=== PATIENT | female | born 1995 | race Caucasian/White ===

== ENCOUNTER 2021-12-17 07:43 | Inpatient (IN) ==
[2021-12-17] MEDS ORDERED: OXYTOCIN 30 UNITS/500 ML BAG IV PRN ×3 (08:11→18:27)
--- NOTE | 2021-12-17 08:34 | History & Physical Report ---
Date of Service December 17, 2021 Assessment & Plan (1) 40 weeks gestation of : Plan: postdates induction. pitocin induction then epidural when in a good pattern. once comfortable then plan arom. fetus category one. anticipate . gbs negative. Admission and Anticipated Discharge Date Admission Date: December 17, 2021 History of Present Illness Chief Complaint: presents for postdates induction Primary Care Provider: Roc Christine MD Patient is a 26yowf with iup at40 03/23 who presents for postdates induction. has been essentially uncomplicated. Patient had bernal bulb placed last night and had very painful cramping. Notes good fm. some spotting. no lof. Occasional contraction. Notes the bulb fell out at about 4am. Recently had covid. and Delivery Plans COVID + PCR on 11/25 and s/s started 11/24 Newly diagnosed with Asthma (03/2021) -Follows Dr Boswell. PRN Ventolin use atrial appendage (normal variant per [facility]) * we saw pericardial effusion on heart views to complete anatomy in early August--> MFM consult * [facility] MFM consult 09/23/21 saw-->4-5mm effusion and aneurysm vs diverticulum off ventricle--> sent to [facility] * [facility] 09/30/21 saw --> normal anatomy and function. atrial appendage noted. no pericardial effusion--> ok for routine delivery. baby needs echo 2-3m. - [facility] reviewed the above [facility] recs, agreed, per [place] [facility] does not need NICU at delivery, ok to deliver at [facility]. s/p covid vaccine and booster. Tdap given 09/23/21 GBS Negative- 11/13/21 IOL 12/17/21 OB Labs: Blood Type O Positive 05/11/21 Antibody Screen NEGATIVE 05/11/21 Hemoglobin 11.8 g/dL (12.0-16.0) L 09/23/21 Hematocrit 35.6 % (37-47) L 09/23/21 Mean Corpuscular Volume 88.9 fL (80-100) 05/11/21 Platelet Count 200 K/uL (130-400) 05/11/21 Rubella IgG Antibody Immune (Immune) 05/11/21 Rapid Plasma Reagin Nonreactive (Nonreactive) 05/11/21 Hepatitis B Surface Antigen Neg (Neg) 05/11/21 HIV (1&2) Ab and P24 Ag, 4th Gener Neg (Neg) 05/11/21 Glucose 1 Hour 50 gm Load 115 mg/dl (70-130) 09/23/21 Maternal Serum Alpha Fetoprotein 32.2 ng/mL 07/01/21 OB Optional Labs: Chlamydia trachomatis RNA NOT DETECTED (NOT DETECTED) 05/11/21 Neisseria gonorrhoeae RNA NOT DETECTED (NOT DETECTED) 05/11/21 Alpha Fetoprotein Triple Screen SEE NOTE 07/01/21 Labs Reviewed: low risk panorama--akh cf/sma neg--akh afp--neg--akh GBS negative--mln Allergies Allergy/AdvReac Type Severity Reaction Status Date / Time No Known Allergies Allergy Verified 12/16/21 19:32 Home Medications Medication Instructions Recorded Confirmed Type albuterol sulfate 90 mcg/actuation See Rx Instructions INHALATION 12/30/20 12/17/21 Rx aerosol inhaler (Ventolin HFA) .COMPLEX PRN #8.5 g prenat.vits,kristi,efa-zuev-efswm 1 tab PO DAILY 04/22/21 12/17/21 History breast pump #1 ea 11/13/21 12/16/21 Rx Patient History Medical History Asthma albuterol inhaler as needed Surgical History Hx of wisdom tooth extraction Family History Grandmother (Maternal) Breast cancer Grandfather (Paternal) Colorectal cancer Colon cancer Father Dyslipidemia Denies family history of Ovarian cancer Prostate cancer Diabetes Myocardial infarction Lung cancer Lung disease Hypertension Uterine cancer Social History Smoking Status: Never smoker Second Hand Exposure: No; Hx Alcohol Use: No Hx Substance Use: No Preferred Language: Scottish Visual Impairment: No Limitations Hearing Ability: Normal marital status: marital status details: Keegan Frazier (28) [phone] Current Living Situation: Spouse Current Living Situation Comment: Lives with spouse, planning for a dog current occupational status: employed current occupation: chief engineering division How many Children do You have: 0 Feels Safe at Home: Yes Childhood Exposure to Second-Hand Smoke: No caffeine: Yes Dental Care, Regularly: Yes Physical Activity Frequency: 5-6 Times per Week Seatbelt Use: always Sunscreen Use: Yes OB History g1--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
[2021-12-17 08:41] LABS: Hematocrit (blood only) 35.9 % (37-47); Hemoglobin 12.2 g/dL (12.0-16.0); Mean Corpuscular Hemoglobin 31.7 pg (25-34); Mean Corpuscular Volume 93.2 fL (80-100); Platelet Count 172 K/uL (130-400); RDW Standard Deviation 44.1 fL (36.4-46.3); Red Blood Count 3.85 M/uL (4.2-5.4); White Blood Count 8.59 K/uL (4.8-10.8)
[2021-12-17] MEDS: LACTATED RINGER'S 1,000 ML IV PRN ×2 (09:02→12:51)
[2021-12-17] MEDS ORDERED: ePHEDrine sulfate 50 MG/ML AMP ONE (12:22)
[2021-12-17] MEDS ORDERED: fentaNYL citrate 100 MCG/2 ML VIAL ONE (12:23)
[2021-12-17] MEDS ORDERED: BUPIVACAINE 0.25% 30 ML VIAL ONE (12:23)
[2021-12-17] MEDS ORDERED: SODIUM CHLORIDE 0.9% INJ 10 ML VIAL ONE (12:23)
[2021-12-17] MEDS ORDERED: fentaNYL 2MCG/ML ROPIVACAINE 1.25MG/ML 100 ML BAG EPI ONE (12:24)
[2021-12-17] MEDS ORDERED: ONDANSETRON INJ 2 MG/ML 2 ML VIAL IV PRN (12:29)
[2021-12-17] MEDS ORDERED: NALOXONE HCL 0.4 MG/1 ML VIAL/CARP IV PRN (12:29)
[2021-12-17] MEDS ORDERED: ePHEDrine sulfate 50 MG/ML AMP IV PRN (12:29)
[2021-12-17] MEDS ORDERED: NALOXONE HCL 1 MG in SODIUM CHLORIDE 0.9% 1000ML 1,000 ML IV PRN (12:29)
[2021-12-17] MEDS ORDERED: diphenhydrAMINE 50 MG/ML VIAL IV PRN (12:29)
[2021-12-17] MEDS ORDERED: NALBUPHINE HCL INJ 10 MG/ML AMP IV PRN (12:29)
[2021-12-17] MEDS ORDERED: fentaNYL 2MCG/ML ROPIVACAINE 1.25MG/ML 100 ML BAG EPI PRN (12:29)
--- NOTE | 2021-12-17 12:30 | Labor Progress Brief Note ---
Date of Service December 17, 2021 Subjective uncomfortable feeling rectal pressure Assessment & Plan (1) 40 weeks gestation of : Plan: will get epidural, then plan arom, fetus category one. Leaking a little bit of fluid but feel intact bag. Admission and Anticipated Discharge Date Admission Date: December 17, 2021 Physical Exam Physical Exam: cx--5+/100/-1 toco--q2-3, pit at 12 efm--120s wtih mod variability, accels to 150s, no decels Results & Data ([facility]) Vital Signs (Past 12 Hours) Vital Signs Temp Pulse Resp BP 12/17/21 11:28 74 126/65 12/17/21 10:46 36.7 C 18 12/17/21 10:26 72 121/73 12/17/21 08:16 36.5 C 20 12/17/21 07:50 36.5 C 104 H 20 126/78 Coding Level of Care Code None Diagnoses 40 weeks gestation of Z3A.40
--- NOTE | 2021-12-17 12:32 | Anesthesiology Consultation ---
Date of Service December 17, 2021 Assessment & Plan (1) Encounter for pre-operative examination: Chart Review Chart Review: Patient NOT seen in Pre Admission Testing and Acceptable Risk for Labor Epidural Consults Requested none History Height/Weight Height: 5 ft 8 in Weight: 76.657 kg Allergies Allergy/AdvReac Type Severity Reaction Status Date / Time No Known Allergies Allergy Verified 12/16/21 19:32 Medications Home Medications Medication Instructions Recorded Confirmed Last Taken albuterol sulfate 90 mcg/actuation See Rx Instructions INHALATION 12/30/20 12/17/21 1 Year Ago aerosol inhaler (Ventolin HFA) .COMPLEX PRN #8.5 g ~12/17/20 prenat.vits,kristi,omf-tjkd-dswwf 1 tab PO DAILY 04/22/21 12/17/21 1 Day Ago ~12/16/21 breast pump #1 ea 11/13/21 12/16/21 Unknown Active Medications Generic Name Dose Route Start Last Admin Trade Name Freq PRN Reason Stop Dose Admin Oxytocin 30 units in 500 mls @ 8 mls/hr 12/17/21 08:11 12/17/21 10:58 Pitocin IV 12/19/21 08:10 0.48 units/hr .Q24H PRN 8 mls/hr Labor Induction/Augmentation Titration Protocol 0.48 UNITS/HR Lactated Ringer's 1,000 mls @ 125 mls/hr 12/17/21 08:11 12/17/21 12:14 Lr IV 12/19/21 08:10 999 mls/hr .Q8H PRN Infusion L&D Protocol Protocol Past Medical History Medical History Asthma albuterol inhaler as needed Exercise / Class Metabolic Activity II 4-5 Yardwork/Stairs/Walk up hill Past Family History Family History Grandmother (Maternal) Breast cancer Grandfather (Paternal) Colorectal cancer Colon cancer Father Dyslipidemia Denies family history of Ovarian cancer Prostate cancer Diabetes Myocardial infarction Lung cancer Lung disease Hypertension Uterine cancer Past Surgical History Surgical History Hx of wisdom tooth extraction Past Anesthesia History No Hx of Anesthesia Complications and No Family Hx of Anesthesia Complications History of PONV No Hx of PONV and No Hx of Motion Sickness Social History Smoking Status: Never smoker Do You Dip or Chew Tobacco: No Hx Alcohol Use: No Alcohol type: wine Hx Substance Use: No substance use type: does not use Physical Exam Vital Signs Last Vital Signs Temp 36.7 C 12/17/21 10:46 Pulse 65 12/17/21 12:47 Resp 18 12/17/21 10:46 BP 135/64 12/17/21 12:47 Pulse Ox 100 12/17/21 12:43 Testing Laboratory Results 12/17/21 08:26
--- NOTE | 2021-12-17 14:28 | Labor Progress Brief Note ---
Date of Service December 17, 2021 Subjective comfortable after replacing her epidural Assessment & Plan (1) 40 weeks gestation of : Plan: continue current management. fetus reassuring. anticipate . Admission and Anticipated Discharge Date Admission Date: December 17, 2021 Physical Exam Physical Exam: cx--7/100/-1 toco--q2-3min, pit at 8 efm--120s wtih mod variability, accels present, one variable with contraction after arom arom--clear Results & Data ([facility]) Vital Signs (Past 12 Hours) Vital Signs Temp Pulse Resp BP Pulse Ox 12/17/21 14:23 83 100 12/17/21 14:18 86 100 12/17/21 14:16 72 114/65 12/17/21 14:13 70 100 12/17/21 14:08 71 99 12/17/21 14:04 67 120/68 12/17/21 14:03 70 98 12/17/21 14:02 63 117/65 12/17/21 13:58 77 135/78 99 12/17/21 13:56 88 129/76 12/17/21 13:54 72 138/78 12/17/21 13:53 82 100 12/17/21 13:52 78 137/75 12/17/21 13:51 79 139/73 12/17/21 13:49 79 128/68 12/17/21 13:48 81 98 12/17/21 13:43 79 141/84 H 100 12/17/21 13:38 76 100 12/17/21 13:34 76 119/71 12/17/21 13:33 75 100 12/17/21 13:29 68 130/61 12/17/21 13:28 68 100 12/17/21 13:25 66 138/65 12/17/21 13:23 67 100 12/17/21 13:20 63 118/58 L 12/17/21 13:18 84 100 12/17/21 13:13 78 136/76 100 12/17/21 13:11 77 128/81 12/17/21 13:09 71 134/79 12/17/21 13:08 75 100 12/17/21 13:07 75 132/80 12/17/21 13:05 75 131/77 12/17/21 13:03 70 129/78 100 12/17/21 13:01 83 139/75 12/17/21 12:59 74 135/75 12/17/21 12:58 77 100 12/17/21 12:57 67 133/82 12/17/21 12:55 78 130/80 12/17/21 12:53 75 122/72 100 12/17/21 12:51 82 133/77 12/17/21 12:49 71 137/71 12/17/21 12:48 75 100 12/17/21 12:47 65 135/64 12/17/21 12:45 73 131/79 12/17/21 12:43 74 100 12/17/21 12:38 79 100 12/17/21 12:37 84 93 12/17/21 12:33 72 100 12/17/21 12:28 67 99 12/17/21 11:28 74 126/65 12/17/21 10:46 36.7 C 18 12/17/21 10:26 72 121/73 12/17/21 08:16 36.5 C 20 12/17/21 07:50 36.5 C 104 H 20 126/78 Coding Level of Care Code None Diagnoses 40 weeks gestation of Z3A.40
--- NOTE | 2021-12-17 17:38 | Labor Progress Brief Note ---
Date of Service December 17, 2021 Subjective feeling some pressure Assessment & Plan (1) 40 weeks gestation of : Plan: begin stage two. anticipate vaginal delivery. fetus category one. Admission and Anticipated Discharge Date Admission Date: December 17, 2021 Physical Exam Physical Exam: cx--c/c/+3 toco--q2-3min efm--115, mod variability, accels presents, early decels Results & Data ([facility]) Vital Signs (Past 12 Hours) Vital Signs Temp Pulse Resp BP Pulse Ox 12/17/21 17:33 82 100 12/17/21 17:28 88 100 12/17/21 17:27 75 117/68 12/17/21 17:23 81 100 12/17/21 17:20 36.7 C 18 12/17/21 17:18 81 100 12/17/21 17:13 73 100 12/17/21 17:12 76 125/69 12/17/21 17:08 73 100 12/17/21 17:03 74 100 12/17/21 16:58 72 100 12/17/21 16:56 70 126/75 12/17/21 16:53 65 100 12/17/21 16:48 78 100 12/17/21 16:44 73 129/75 12/17/21 16:43 75 100 12/17/21 16:38 74 100 12/17/21 16:33 77 100 12/17/21 16:28 64 100 12/17/21 16:27 64 116/57 L 12/17/21 16:23 66 100 12/17/21 16:18 69 100 12/17/21 16:13 69 100 12/17/21 16:12 76 118/68 12/17/21 16:08 64 100 12/17/21 16:03 68 100 12/17/21 15:58 66 107/64 100 12/17/21 15:53 62 100 12/17/21 15:48 64 100 12/17/21 15:43 69 100 12/17/21 15:41 65 107/64 12/17/21 15:38 65 100 12/17/21 15:33 66 100 12/17/21 15:28 72 100 12/17/21 15:26 65 114/62 12/17/21 15:23 67 100 12/17/21 15:19 36.4 C L 18 03/03/22 15:18 70 100 12/17/21 15:13 69 100 12/17/21 15:12 71 122/69 12/17/21 15:08 66 100 12/17/21 15:03 66 100 12/17/21 14:58 68 100 12/17/21 14:56 76 118/67 12/17/21 14:53 77 100 12/17/21 14:48 77 100 12/17/21 14:43 75 117/68 100 12/17/21 14:38 70 100 12/17/21 14:33 78 100 12/17/21 14:28 76 100 12/17/21 14:23 83 100 12/17/21 14:18 86 100 12/17/21 14:16 72 114/65 12/17/21 14:13 70 100 12/17/21 14:08 71 99 12/17/21 14:04 67 120/68 12/17/21 14:03 70 98 12/17/21 14:02 63 117/65 12/17/21 13:58 77 135/78 99 12/17/21 13:56 88 129/76 12/17/21 13:54 72 138/78 12/17/21 13:53 82 100 12/17/21 13:52 78 137/75 12/17/21 13:51 79 139/73 12/17/21 13:49 79 128/68 12/17/21 13:48 81 98 12/17/21 13:43 79 141/84 H 100 12/17/21 13:38 76 100 12/17/21 13:34 76 119/71 12/17/21 13:33 75 100 12/17/21 13:29 68 130/61 12/17/21 13:28 68 100 12/17/21 13:25 66 138/65 12/17/21 13:23 67 100 12/17/21 13:20 63 118/58 L 12/17/21 13:18 84 100 12/17/21 13:13 78 136/76 100 12/17/21 13:11 77 128/81 12/17/21 13:09 71 134/79 12/17/21 13:08 75 100 12/17/21 13:07 75 132/80 12/17/21 13:05 75 131/77 03/03/22 13:03 70 129/78 100 12/17/21 13:01 83 139/75 12/17/21 12:59 74 135/75 12/17/21 12:58 77 100 12/17/21 12:57 67 133/82 12/17/21 12:55 78 130/80 12/17/21 12:53 75 122/72 100 12/17/21 12:51 82 133/77 12/17/21 12:49 71 137/71 12/17/21 12:48 75 100 12/17/21 12:47 65 135/64 12/17/21 12:45 73 131/79 12/17/21 12:43 74 100 12/17/21 12:38 79 100 12/17/21 12:37 84 93 12/17/21 12:33 72 100 12/17/21 12:28 67 99 12/17/21 11:28 74 126/65 12/17/21 10:46 36.7 C 18 12/17/21 10:26 72 121/73 12/17/21 08:16 36.5 C 20 12/17/21 07:50 36.5 C 104 H 20 126/78 Coding Level of Care Code None Diagnoses 40 weeks gestation of Z3A.40
[2021-12-17] MEDS ORDERED: METHYLERGONOVINE MALEATE 0.2 MG/ML AMP ONE (17:58)
--- NOTE | 2021-12-17 18:26 | Delivery Summary ---
Vaginal Delivery Summary Date of Service December 17, 2021 Vaginal Delivery Summary and 2nd Degree LAC Pre-operative Diagnosis: at 40 6/7 postdates induction Post-operative Diagnosis: same Procedure: pitocin induction epidural arom second degree and bilateral labial lacs with repair. EBL: 450cc Anesthesia: epidural Procedure: The patient was admitted for postdates induction. Received pit, arom, epidural. Progressed to c/c/+3. The patient pushed for about 20 minutes to deliver a viable female infant in edi position. The rest of the was then delivered without difficulty. NO nuchal cord. The baby was vigorous. The nose and mouth were again bulb suctioned on the abdomen the infant was placed in the maternal abdomen for drying and attention. Cord was clamped and cut at one minute of life. Cord blood obtained. Placenta delivered spontaneous, intact with a three vessel cord. Cervix/sulci/rectum were intact. A second degree perineal laceration and bilateral labial lacs were repaired in the normal standard fashion. Hemostasis obtained with dilute pitocin and fundal massage and IM methergine. Apgars were 8/9. Mother and baby doing well at the end of the delivery. [facility] Vaginal Delivery Charge Delivery Type Details: and 2nd Degree LAC
[2021-12-17] MEDS ORDERED: ACETAMINOPHEN 325 MG TAB PO PRN (18:27)
[2021-12-17] MEDS ORDERED: bisacodyL 10 MG SUPP PR PRN (18:27)
[2021-12-17] MEDS ORDERED: BENZOCAINE 20% AER SPR 82.5 GM CAN EXT PRN (18:27)
[2021-12-17] MEDS ORDERED: DIPHTHERIA/TETANUS/PERTUSSIS 0.5 ML SYR/VIAL IM ONE (18:27)
[2021-12-17] MEDS ORDERED: METHYLERGONOVINE MALEATE 0.2 MG/ML AMP IM ONE (18:27)
[2021-12-17] MEDS ORDERED: oxyCODONE/ACETAMINOPHEN 5mg/325mg TAB PO PRN (18:27)
[2021-12-17] MEDS ORDERED: HYDROCORTISONE ACETATE 25 MG SUPP PR PRN (18:27)
--- NOTE | 2021-12-17 19:16 | Anesthesia Procedure Note ---
Date of Service December 17, 2021 Anesthesia Post Epidural Note Vital Signs Vital Signs: Temp Pulse Resp BP Pulse Ox 36.7 C 82 18 88/47 L 100 12/17/21 17:20 12/17/21 19:12 12/17/21 17:20 12/17/21 19:12 12/17/21 17:49 Pain Intensity Bilateral Abdomen: Pain Intensity: 0 Notes Mental Status: alert / awake / arousable and participated in evaluation Patient Amnestic to Procedure: No Nausea / Vomiting: adequately controlled Pain: adequately controlled Airway Patency, RR, SpO2: stable & adequate BP & HR: stable & adequate Hydration State: stable & adequate Neuraxial Anesthesia: was administered and sensory block is resolving Anesthetic Complications: no major complications apparent and Pt Satisfied with anesthetic care Epidural: Removed without complications and With tip intact
[2021-12-17] MEDS: IBUPROFEN 600 MG TAB PO PRN (20:05)
[2021-12-18] MEDS: IBUPROFEN 600 MG TAB PO PRN ×4 (03:25→20:17)
--- NOTE | 2021-12-18 05:29 | Obstetrical Progress Note ---
Date of Service <Ivette Bauman MD - Last Filed: 12/18/21 07:10> December 18, 2021 Assessment & Plan <Ivette Bauman MD - Last Filed: 12/18/21 07:10> (1) Vaginal delivery: 26 yo now PPD1 from at 40wk6d -Continue routine care -Vitals reviewed- HDS, afebrile -Blood type O+, GBS-, Rubella immune -Encourage ambulation -Pain control with ibuprofen, acetaminophen PRN -Encourage -Hgb 10.0 today -F/u in 6 weeks with OB <Maggy Landon MD, FACOG - Last Filed: 12/18/21 07:36> (1) Vaginal delivery: Subjective <Ivette Bauman MD - Last Filed: 12/18/21 07:10> Ambulation: ambulating normally Voiding: no voiding problems Passing Gas:: Yes Diet Tolerance:: regular diet Lochia:: Small Feeding Type:: breast feeding Current Pain Level(1-10): 1 Pt doing well overall, no acute complaints or distress. Pain well controlled with medication. Some sore nipples with , bleeding is slowing down. Review of Systems Denies fever/chills. Denies dyspnea, cough. Denies chest pain. Denies breast pain or discharge. Denies dysuria. Denies headache. Denies back pain. Physical Exam <Ivette Bauman MD - Last Filed: 12/18/21 07:10> General: Alert, oriented, no acute distress Cardiac: Regular rate and rhythm, normal S1, S2. No murmurs appreciated. Respiratory: Clear to auscultation b/l with good air flow entry, symmetric chest rise and fall. No wheezes or crackles. No increased work of breathing or accessory muscle use Abdomen: Soft, nontender, nondistended. Fundus firm and palpable at 2 cm below umbilicus. No guarding or rebound. Skin: No rashes or lesions Extremities: Warm, dry, well-perfused with capillary refill <2s b/l. No lower extremity edema, erythema or swelling. Negative Lana's sign b/l. Results & Data ([facility]) <Ivette Bauman MD - Last Filed: 12/18/21 07:10> Vital Signs (Past 12 Hours) Vital Signs Temp Pulse Pulse Resp BP BP Pulse Ox 12/18/21 03:20 36.7 C 66 16 111/66 97 12/17/21 23:15 36.8 C 67 16 110/58 L 98 12/17/21 20:56 18 12/17/21 20:26 96 H 135/67 12/17/21 20:25 18 12/17/21 20:11 85 127/65 12/17/21 19:56 88 108/68 12/17/21 19:55 36.8 C 18 12/17/21 19:41 91 H 110/73 12/17/21 19:26 80 113/60 12/17/21 19:25 18 12/17/21 19:15 93 H 116/64 12/17/21 19:12 82 88/47 L 12/17/21 19:10 18 12/17/21 18:57 82 118/58 L 12/17/21 18:55 18 12/17/21 18:27 81 134/63 12/17/21 17:59 94 H 104/69 12/17/21 17:57 85 114/56 L 12/17/21 17:49 84 100 12/17/21 17:44 95 H 100 12/17/21 17:39 85 100 12/17/21 17:36 95 H 90 12/17/21 17:33 82 100 <Maggy Landon MD, FACOG - Last Filed: 12/18/21 07:36> Co-Signing Physician Notes Resident Physician Supervision Note: I interviewed and examined the patient. Discussed with Dr. bauman and agree with findings and plan as documented in the note. Any exceptions or clarifications are listed here: Doing well. routine pp care. Wants to speak to clinical education consultant as nipples are quite sore. Documented By: Maggy Landon MD, FACOG Resident Activity Tracking <Ivette Bauman MD - Last Filed: 12/18/21 07:10> Resident Involvement: Resident Care Provided Care Provided: OB Delivery
[2021-12-18 07:00] LABS: Hematocrit (blood only) 29.9 % (37-47)
--- NOTE | 2021-12-18 07:30 | Medical Student Progress Note ---
Date of Service December 18, 2021 Assessment & Plan (1) Vaginal delivery: Plan: Patient is a 26 yo female PPD 1 from [facility] at 40 6/7. -Continue routine care -Vitals reviewed- HDS, afebrile, all WNL -Blood type O positive, GBS negative, Rubella immune -Encourage ambulation, regular diet -Pain control with ibuprofen, acetaminophen PRN -Continue ; marketing content specialist will work with patient -Hgb 10.0 (3/4) -F/u in 6 weeks with OB Admission and Anticipated Discharge Date Admission Date: December 17, 2021 Subjective Patient is a 26 yo female PPD 1 from [facility] at 40 6/7. This morning she is doing well. She is ambulating, voiding urine and passing gas. She has not had a bm as of this morning. She did have 1 episode of emesis after consuming juice post-delivery, but she was able to eat dinner and drink subsequently without issue or nausea/vomiting. She has moderate lochia, changing the absorbant ice pack q3 hours, with small string-like clots. She is exclusively breast feeding, which has been going okay, though she endorses sore nipples and poor latch. Her pain this morning is 1/10, mostly pressure. She states the motrin is helping. She also has a mild headache which she attributes to poor sleep. Review of Systems: Denies fevers/chills Denies SOB/cough/wheeze Denies CP/palpitations Denies breast pain/discharge (other than sore nipples from ) Denies UTI sx Denies calf pain, swelling, edema. Physical Exam Physical Exam: General: Well appearing. Alert, oriented, no acute distress. Cardiac: Regular rate and rhythm, normal S1, S2. No murmurs, rubs, gallops appreciated. Respiratory: Clear to auscultation b/l with good air flow entry, symmetric chest rise and fall. No wheezes or crackles. No increased work of breathing or accessory muscle use Abdomen: Soft, nontender, nondistended. Fundus firm and palpable at 2 cm below umbilicus. No guarding or rebound. Skin: No rashes or lesions Extremities: Warm, dry, well-perfused with capillary refill <2s b/l. No lower ex tremity edema, erythema or swelling. Strong pulses in b/l LE. Results & Data ([facility]) Vital Signs (Past 12 Hours) Vital Signs Temp Pulse Pulse Resp BP BP Pulse Ox 12/18/21 03:20 36.7 C 66 16 111/66 97 12/17/21 23:15 36.8 C 67 16 110/58 L 98 12/17/21 20:56 18 12/17/21 20:26 96 H 135/67 12/17/21 20:25 18 12/17/21 20:11 85 127/65 12/17/21 19:56 88 108/68 12/17/21 19:55 36.8 C 18 12/17/21 19:41 91 H 110/73
[2021-12-18] MEDS: PRENATAL VITAMIN 1 TAB PO SCH (08:46)
[2021-12-18] MEDS: DOCUSATE SODIUM 100 MG CAP PO SCH ×2 (08:46→20:17)
[2021-12-18] MEDS ORDERED: bisacodyL 5 MG TABEC PO SCH (20:00)
--- NOTE | 2021-12-19 05:26 | Obstetrical Progress Note ---
Date of Service <Ivette Cho MD - Last Filed: 12/19/21 07:34> December 19, 2021 Assessment & Plan <Ivette Cho MD - Last Filed: 12/19/21 07:34> (1) Vaginal delivery: 26 yo now PPD1 from at 40wk6d -Discharge home today -Short term disability form completed, work note for father provided -Vitals reviewed- HDS, afebrile -Blood type O+, GBS-, Rubella immune -Encourage ambulation -Pain control with ibuprofen, acetaminophen PRN -Encourage -F/u in 6 weeks with OB <Esperanza Chamorro DO - Last Filed: 12/19/21 07:50> (1) Vaginal delivery: Subjective <Ivette Cho MD - Last Filed: 12/19/21 07:34> Ambulation: ambulating normally Voiding: no voiding problems Passing Gas:: Yes Diet Tolerance:: regular diet Lochia:: Small Feeding Type:: breast feeding Current Pain Level(1-10): 1 Pt doing well overall, no acute complaints or distress. Pain well controlled with medication. improving, bleeding significantly slowing down. Review of Systems Denies fever/chills. Denies dyspnea, cough. Denies chest pain. Denies breast pain or discharge. Denies dysuria. Denies headache. Denies back pain. Physical Exam <Ivette Cho MD - Last Filed: 12/19/21 07:34> General: Alert, oriented, no acute distress Cardiac: Regular rate and rhythm, normal S1, S2. No murmurs appreciated. Respiratory: Clear to auscultation b/l with good air flow entry, symmetric chest rise and fall. No wheezes or crackles. No increased work of breathing or accessory muscle use Abdomen: Soft, nontender, nondistended. Fundus firm and palpable at 2 cm below umbilicus. No guarding or rebound. Skin: No rashes or lesions Extremities: Warm, dry, well-perfused with capillary refill <2s b/l. No lower extremity edema, erythema or swelling. Negative Lana's sign b/l. Results & Data ([facility]) <Ivette Cho MD - Last Filed: 12/19/21 07:34> Vital Signs (Past 12 Hours) Vital Signs Temp Pulse Pulse Resp BP Pulse Ox 12/19/21 00:10 36.5 C 64 18 121/74 97 12/18/21 19:25 36.7 C 89 18 119/74 99 <Esperanza Chamorro DO - Last Filed: 12/19/21 07:50> Co-Signing Physician Notes Resident Physician Supervision Note: I was present with Dr. Cho during the history and exam. I discussed the case with the resident and agree with the findings and plan as documented in the note. Any exceptions or clarifications are listed here: PPD2 doing well, reviewed DC instructions. Followup 6w PP. Documented By: Esperanza Chamorro DO Resident Activity Tracking <Ivette Cho MD - Last Filed: 12/19/21 07:34> Resident Involvement: Resident Care Provided Care Provided: OB Delivery
[2021-12-19] MEDS: IBUPROFEN 600 MG TAB PO PRN (08:51)
[2021-12-19] MEDS: DOCUSATE SODIUM 100 MG CAP PO SCH (08:51)
[2021-12-19] MEDS: PRENATAL VITAMIN 1 TAB PO SCH (08:51)
== END 2021-12-19 11:05 | disposition home or self-care (01) | DRG 807 ==
LOC: 4S1 07:43 → 4S2 21:13

== ENCOUNTER 2023-11-03 16:00 | Inpatient (IN) ==
[2023-11-03] MEDS ORDERED: LIDOCAINE 1% LOCAL 20 ML VIAL INFIL PRN (16:03)
[2023-11-03] MEDS ORDERED: OXYTOCIN 30 UNITS/NSS 30 UNITS/500 ML BAG IV PRN ×2 (16:03→20:04)
[2023-11-03] MEDS ORDERED: LACTATED RINGER'S 1,000 ML IV PRN (16:03)
--- NOTE | 2023-11-03 16:11 | History & Physical Report ---
Date of Service November 03, 2023 Assessment & Plan (1) Encounter for supervision of normal in multigravida, antepartum: Plan: Will admit to L&D for evaluation and further management. VSS GBS neg; Rh pos Fetus cat 1 Pit as needed Epidural prn All questions answered. History of Present Illness Chief Complaint: LABOR CHECK Primary Care Provider: Jack Sanchez DO Jigna is a 28 y/o female currently at IUP 39 5/7 WGA with an SARANYA 11/05/23 as determined by certain LMP who comes to labor and delivery unit for a labor check. Her contractions began last night and were occurring "pretty frequently". Then in the middle of the night they spaced out to occurring every 30 minutes for a few hours, and then increased in frequency again on 11:30am this morning and were coming every 5-6 minutes and were uncomfortable. She was seen in the OB clinic due to this and was found to be 4cm dilated, and 90% effaced. Due to this, she was sent to L&D for a Labor check. (+) movement (+) contractions (-) fluid loss (-) bloody show External FHT and external uterine monitors used * Category 1 tracing * Moderate FHT variability. Had regular appointments since 1st trimester. OB Labs: Blood Type O Positive 03/28/23 Antibody Screen NEGATIVE 03/28/23 Hemoglobin 11.9 g/dl (12.0-16.0) L 08/19/23 Hematocrit 35.8 % (37.0-47.0) L 08/19/23 Mean Corpuscular Volume 87.3 fL (80.0-100.0) 03/28/23 Platelet Count 209 K/uL (130-400) 03/28/23 Rubella IgG Antibody Immune (Immune) 03/28/23 Rapid Plasma Reagin Nonreactive (Nonreactive) 03/28/23 Hepatitis B Surface Antigen Neg (Neg) 05/11/21 Hepatitis B Surface Antigen. NON-REACTIVE (NON-REACTIVE) 03/28/23 Hepatitis C Antibody (EIA) NON-REACTIVE (NON-REACTIVE) 03/28/23 HIV (1&2) Ab and P24 Ag, 4th Gener Neg (Neg) 05/11/21 HIV (1&2) Ag and Ab Confirmation NON-REACTIVE (NON-REACTIVE) 03/28/23 Glucose 1 Hour 50 gm Load 137 mg/dl (70-130) H 05/23/23 Maternal Serum Alpha Fetoprotein 32.2 ng/mL 07/01/21 OB Optional Labs: Chlamydia trachomatis RNA Not Detected (NotDetected) 03/28/23 Neisseria gonorrhoeae RNA Not Detected (NotDetected) 03/28/23 Alpha Fetoprotein Triple Screen SEE NOTE 07/01/21 Labs Reviewed: cf/sma neg--in prior , HK cfDNA declines--smp Allergies Allergy/AdvReac Type Severity Reaction Status Date / Time No Known Allergies Allergy Verified 11/03/23 15:35 Home Medications Medication Instructions Recorded Confirmed Type albuterol sulfate 90 mcg/actuation See Rx Instructions inhalation 12/30/20 11/03/23 Rx aerosol inhaler (Ventolin HFA) .COMPLEX PRN shortness of breath or wheezing #8.5 grams prenat.vits,kristi,[id number] 1 tab PO DAILY 04/22/21 11/03/23 History cetirizine 10 mg tablet (Zyrtec) 10 mg PO DAILY 02/05/22 11/03/23 History RSV vac, preF A and preF B(PF) 120 0.5 ml IM ONCE #1 ea 09/26/23 11/03/23 Rx mcg/0.5 mL IM solution (Abrysvo) Patient History Medical History (Updated 09/15/23 @ 10:30 by Jessa Morales MD, FACOG) Granulation tissue at obstetrical laceration site Asthma albuterol inhaler as needed Surgical History Hx of wisdom tooth extraction Family History Grandmother (Maternal) Breast cancer Grandfather (Paternal) Colorectal cancer Colon cancer Father Dyslipidemia Grandfather (Maternal) Stroke Denies family history of Ovarian cancer Prostate cancer Diabetes Myocardial infarction Lung cancer Lung disease Hypertension Uterine cancer Social History (Updated 03/24/23 @ 10:55 by Micaela aWng) Smoking Status: Never smoker Second Hand Exposure: No; Do You Dip or Chew Tobacco: No; Hx Alcohol Use: No Hx Substance Use: No Preferred Language: Kazakh Communication Ability: Effective Visual Impairment: Diminished Hearing Ability: Normal Sawmill Tally Clerk Required: No Beliefs That Will Affect Care: None marital status: marital status details: Keegan Frazier (30) [phone] Current Living Situation: Spouse Current Living Situation Comment: Lives with , daughter, and dog current occupational status: employed 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 Date GA wks Lbr Lgth wt Sex Type del Anes Place Del Prov ? Comment 12/17/21 40 8lb 2.2oz F Epi dural [facility] Dr. Landon No [employer] History Last menstrual period: Yes Menstrual reliability: definite Flow: normal Menstrual regularity: regular Monthly: Yes Age at menarche: 10 On control pills at conception: No Date of positive home test: 03/01/23 Menstrual history comments: 32 day cycles. Details: last pap 10/30/[address] Guillaume. WNL Review of Systems no fever, no chills and no sweats Denies changes in vision. Denies shortness of breath or respiratory difficulty. no chest pain and no palpitations no dysuria no headache(s) Physical Exam Physical Exam: General: Alert, oriented x3. Afebrile. No acute distress. Eyes: Pupils equal and reactive to light bilaterally. Extraocular movement intact bilaterally. Cardiac: Regular rate and rhythm, no murmurs/rubs/gallops. Respiratory: Clear to auscultation bilaterally a/p, no wheezes/rales/rhonchi. No increased work of breathing. Symmetrical chest rise. No respiratory distress. Abdomen: Gravid; FHR baseline 135-140 bpm; Position: Vertex Pelvic: 4 / 90 / -[address] Grubbs Lower Extremities: No lower extremity edema or swelling. No deep calf pain. Lana's negative bilaterally Supervising Physician Co-Signing Physician Notes Resident Physician Supervision Note: I was present with [Name of resident] during the history and exam. I discussed the case with the resident and agree with the findings and plan as documented in the note. Any exceptions or clarifications are listed here: [None] Documented By: Sunitha Grubbs MD, FACOG
[2023-11-03 16:41] LABS: Mean Corpuscular Hemoglobin 30.2 pg (25.0-34.0); Mean Corpuscular Hgb Conc 33.3 g/dL (32.0-36.0); Mean Corpuscular Volume 90.7 fL (80.0-100.0); Mean Platelet Volume 10.7 fL (9.4-12.4); Platelet Count 157 K/uL (130-400); RDW Coefficient of Variation 13.2 % (11.5-14.5); RDW Standard Deviation 43.4 fL (36.4-46.3); Red Blood Count 3.97 M/uL (4.20-5.40); White Blood Count 8.52 K/ul (4.8-10.8)
[2023-11-03] MEDS ORDERED: SODIUM CHLORIDE 0.9% PF INJ 10 ML VIAL ONE (19:02)
[2023-11-03] MEDS ORDERED: BUPIVACAINE 0.25% PF 30 ML VIAL ONE (19:02)
[2023-11-03] MEDS ORDERED: LIDOCAINE 2%/EPINEPHRINE 1:200,000 20 ML PF ONE (19:02)
[2023-11-03] MEDS ORDERED: fentANYL 2 MCG/ML BUPIVacaine 0.125%-NSS 100ML BAG ONE (19:02)
[2023-11-03] MEDS ORDERED: fentaNYL citrate PF 100 MCG/2 ML VIAL ONE (19:02)
[2023-11-03] MEDS ORDERED: ePHEDrine sulfate 50 MG/ML AMP ONE (19:02)
[2023-11-03] MEDS ORDERED: BUPIVACAINE 0.25% PF 30 ML VIAL EPI PRN (19:18)
[2023-11-03] MEDS ORDERED: fentaNYL citrate PF 100 MCG/2 ML VIAL EPI PRN (19:18)
[2023-11-03] MEDS ORDERED: ROPIVACAINE 0.5% PF 5 MG/ML 20 ML VIAL EPI PRN (19:18)
[2023-11-03] MEDS ORDERED: SODIUM CHLORIDE 0.9% PF INJ 10 ML VIAL EPI PRN (19:18)
[2023-11-03] MEDS ORDERED: diphenhydrAMINE 50 MG/ML VIAL IV PRN (19:18)
[2023-11-03] MEDS ORDERED: NALOXONE HCL 0.4 MG/1 ML VIAL/CARP IV PRN (19:18)
[2023-11-03] MEDS ORDERED: fentANYL 2 MCG/ML BUPIVacaine 0.125%-NSS 100ML BAG EPI PRN (19:18)
[2023-11-03] MEDS ORDERED: NALBUPHINE HCL 5 MG in SYRINGE 0 ML IV PRN (19:18)
[2023-11-03] MEDS ORDERED: ePHEDrine sulfate 50 MG/ML AMP IV PRN (19:18)
[2023-11-03] MEDS ORDERED: SODIUM CHLORIDE 0.9% PF INJ 10 ML VIAL EPI STA (19:18)
[2023-11-03] MEDS ORDERED: LIDOCAINE 2%/EPINEPHRINE 1:200,000 20 ML PF EPI STA (19:18)
[2023-11-03] MEDS ORDERED: NALOXONE HCL 1 MG in SODIUM CHLORIDE 0.9% 1,000 ML IV PRN (19:18)
[2023-11-03] MEDS ORDERED: LIDOCAINE 2% MPF LOCAL 5 ML VIAL EPI PRN (19:18)
[2023-11-03] MEDS ORDERED: fentaNYL citrate PF 100 MCG/2 ML VIAL EPI STA (19:18)
[2023-11-03] MEDS ORDERED: BUPIVACAINE 0.25% PF 30 ML VIAL EPI STA (19:18)
--- NOTE | 2023-11-03 19:18 | Anesthesiology Consultation ---
Date of Service November 03, 2023 Assessment & Plan Chart Review Chart Review: Acceptable Risk for Labor Epidural Consults Requested none History Height/Weight Height: 5 ft 8 in Weight: 74.389 kg Allergies Allergy/AdvReac Type Severity Reaction Status Date / Time No Known Allergies Allergy Verified 11/03/23 15:35 Medications Home Medications Medication Instructions Recorded Confirmed Last Taken albuterol sulfate 90 mcg/actuation See Rx Instructions inhalation 12/30/20 11/03/23 1 Year Ago aerosol inhaler (Ventolin HFA) .COMPLEX PRN shortness of breath ~12/17/20 or wheezing #8.5 grams prenat.vits,kristi,[id number] 1 tab PO DAILY 04/22/21 11/03/23 1 Day Ago ~12/16/21 cetirizine 10 mg tablet (Zyrtec) 10 mg PO DAILY 02/05/22 11/03/23 Unknown RSV vac, preF A and preF B(PF) 120 0.5 ml IM ONCE #1 ea 09/26/23 11/03/23 Unknown mcg/0.5 mL IM solution (Abrysvo) Past Medical History Medical History (Updated 09/15/23 @ 10:30 by Jessa Morales MD, FACOG) Granulation tissue at obstetrical laceration site Asthma albuterol inhaler as needed Past Family History Family History Grandmother (Maternal) Breast cancer Grandfather (Paternal) Colorectal cancer Colon cancer Father Dyslipidemia Grandfather (Maternal) Stroke Denies family history of Ovarian cancer Prostate cancer Diabetes Myocardial infarction Lung cancer Lung disease Hypertension Uterine cancer Past Surgical History Surgical History Hx of wisdom tooth extraction Social History Smoking Status: Never smoker Do You Dip or Chew Tobacco: No Hx Alcohol Use: No Alcohol type: beer, wine and hard liquor Hx Substance Use: No substance use type: does not use Review of Systems Constitutional: no fever, no chills and no sweats Cardiovascular: no chest pain and no palpitations Genitourinary (Female): no dysuria Neurologic: no headache(s) Physical Exam Vital Signs Last Vital Signs Temp 36.8 C 11/03/23 16:07 Pulse 72 11/03/23 19:11 Resp 16 11/03/23 16:42 BP 134/77 11/03/23 16:42 Pulse Ox 100 11/03/23 19:11 Testing Laboratory Results 11/03/23 16:22
--- NOTE | 2023-11-03 19:43 | Anesthesiology Consultation ---
Date of Service November 03, 2023 Assessment & Plan Chart Review Chart Review: Acceptable Risk for Labor Epidural Consults Requested none History Height/Weight Height: 5 ft 8 in Weight: 74.389 kg Allergies Allergy/AdvReac Type Severity Reaction Status Date / Time No Known Allergies Allergy Verified 11/03/23 15:35 Medications Home Medications Medication Instructions Recorded Confirmed Last Taken albuterol sulfate 90 mcg/actuation See Rx Instructions inhalation 12/30/20 11/03/23 1 Year Ago aerosol inhaler (Ventolin HFA) .COMPLEX PRN shortness of breath ~12/17/20 or wheezing #8.5 grams prenat.vits,kristi,[id number] 1 tab PO DAILY 04/22/21 11/03/23 1 Day Ago ~12/16/21 cetirizine 10 mg tablet (Zyrtec) 10 mg PO DAILY 02/05/22 11/03/23 Unknown RSV vac, preF A and preF B(PF) 120 0.5 ml IM ONCE #1 ea 09/26/23 11/03/23 Unknown mcg/0.5 mL IM solution (Abrysvo) Active Medications Generic Name Dose Route Start Last Admin Trade Name Freq PRN Reason Stop Dose Admin Fentanyl/Bupivacaine/Sodium Chlor 100 ml 11/03/23 19:18 11/03/23 19:36 Fentanyl 2 Mcg/Ml Bupivacaine 0.125%-Nss 100ml Bag EPI 11/04/23 19:17 100 ml PRN PRN Administration Pain R/T Labor Protocol Lactated Ringer's 1,000 mls @ 125 mls/hr 11/03/23 16:03 11/03/23 19:15 Lr IV 11/05/23 16:02 999 mls/hr .Q8H PRN Administration L&D Protocol Protocol Past Medical History Medical History (Updated 09/15/23 @ 10:30 by Jessa Morales MD, FACOG) Granulation tissue at obstetrical laceration site Asthma albuterol inhaler as needed Past Family History Family History Grandmother (Maternal) Breast cancer Grandfather (Paternal) Colorectal cancer Colon cancer Father Dyslipidemia Grandfather (Maternal) Stroke Denies family history of Ovarian cancer Prostate cancer Diabetes Myocardial infarction Lung cancer Lung disease Hypertension Uterine cancer Past Surgical History Surgical History Hx of wisdom tooth extraction Social History Smoking Status: Never smoker Do You Dip or Chew Tobacco: No Hx Alcohol Use: No Alcohol type: beer, wine and hard liquor Hx Substance Use: No substance use type: does not use Review of Systems Constitutional: no fever, no chills and no sweats Cardiovascular: no chest pain and no palpitations Genitourinary (Female): no dysuria Neurologic: no headache(s) Physical Exam Vital Signs Last Vital Signs Temp 36.8 C 11/03/23 16:07 Pulse 76 11/03/23 19:41 Resp 16 11/03/23 16:42 BP 114/63 11/03/23 19:40 Pulse Ox 100 11/03/23 19:41 Testing Laboratory Results 11/03/23 16:22
--- NOTE | 2023-11-03 19:59 | Delivery Summary ---
Vaginal Delivery Summary Date of Service November 03, 2023 Vaginal Delivery Summary and 2nd Degree LAC Spontaneous vaginal delivery the patient arrived in active labor with her second baby GBS negative she was 4 to 5 cm progressed to 6 cm requested epidural this is obtained shortly afterwards she was complete pushed over a total of 2 contractions baby in occiput anterior position clear fluid no nuchal cord once the head was delivered gentle traction on the baby no excessive force live vigorous male cord clamped and cut cord blood obtained placenta removed with traction IV Pitocin started second-degree tear with repaired with 3-0 Vicryl sponge and instrument counts correct oxytocin was given after delivery of the placenta uterine tone was good estimated blood loss 150 mL [facility] Vaginal Delivery Charge Delivery Type Details: and 2nd Degree LAC
[2023-11-03] MEDS ORDERED: bisacodyL 10 MG SUPP PR PRN (20:04)
[2023-11-03] MEDS ORDERED: HYDROCORTISONE ACETATE 25 MG SUPP PR PRN (20:04)
[2023-11-03] MEDS ORDERED: BENZOCAINE 20% SPRY 85 APPLN/85 GM CAN EXT PRN (20:04)
[2023-11-03] MEDS ORDERED: DIPHTHER/TETAN/PERTUS Vaccine (Tdap, Adol/Adult) 0.5mL IM ONE (20:04)
[2023-11-03] MEDS: IBUPROFEN 600 MG TAB PO PRN (20:15)
[2023-11-03] MEDS: DOCUSATE SODIUM 100 MG CAP PO SCH (22:05)
[2023-11-03] MEDS: ACETAMINOPHEN 325 MG TAB PO PRN (23:23)
[2023-11-04] MEDS: IBUPROFEN 600 MG TAB PO PRN ×4 (02:36→19:47)
[2023-11-04] MEDS: ACETAMINOPHEN 325 MG TAB PO PRN (05:01)
[2023-11-04 06:56] LABS: Hematocrit (blood only) 30.4 % (37.0-47.0); Hemoglobin 10.4 g/dl (12.0-16.0); Mean Corpuscular Hemoglobin 30.9 pg (25.0-34.0); Mean Corpuscular Hgb Conc 34.2 g/dL (32.0-36.0); Mean Corpuscular Volume 90.2 fL (80.0-100.0); Mean Platelet Volume 10.4 fL (9.4-12.4); Platelet Count 134 K/uL (130-400); RDW Coefficient of Variation 13.1 % (11.5-14.5); RDW Standard Deviation 42.5 fL (36.4-46.3); Red Blood Count 3.37 M/uL (4.20-5.40); White Blood Count 8.42 K/ul (4.8-10.8)
--- NOTE | 2023-11-04 07:29 | Obstetrical Progress Note ---
Date of Service November 04, 2023 Assessment & Plan (1) Encounter for care after hospital delivery: Patient with the above mentioned history and findings was evaluated at bedside and found awake, alert, oriented in all spheres, afebrile, and in no acute distress. Vital signs showed no fever and blood pressures remained stable. Her blood type is O positive and most recent hemoglobin is adequate at 10.4 g/dL. She is GBS negative and rubella immune. Overall, patient is doing well clinically and meeting the desired milestones. Will continue routine pp care. All questions answered. Toshia Benito is a 28 y/o female who is now PPD # 1 following at 39 5/7 weeks. Reports feeling well overall this morning. Refers mild abdominal cramping & 4/10 pain well managed on analgesics. Voiding spontaneously. Has passed flatus but no bowel movements yet. Tolerating meals overnight and able to ambulate some. Some persistent lochia with some improvement this morning. . Constitutional: no fever, no chills or no sweats Denies shortness of breath or difficulty breathing Cardiovascular: no chest pain or no palpitations Breast: no breast pain Genitourinary (female): no dysuria Neurologic: no headache(s) Denies changes in vision Physical Exam General: Alert. Oriented to person, time, and place. Afebrile. No acute distress. Eyes: pupils equal and reactive to light bilaterally, extraocular movements intact. Cardiac: Regular rate and rhythm, no murmurs/rubs/gallops. Respiratory: Clear to auscultation bilaterally a/p, no wheezes/rales/rhonchi. No increased work of breathing. Symmetrical chest rise. No respiratory distress. Abdomen: Soft, nontender, nondistended. Bowel sounds present. Uterus: Uterine fundus firm, nontender, palpable below umbilicus. Lower Extremities: No lower extremity edema or swelling. No deep calf pain. Lana's negative bilaterally. Psych: Euthymic affect. Mood and affect congruence. Regular speech rate and content. Results & Data Vital Signs (Past 12 Hours) Vital Signs Temp Pulse Pulse Resp BP BP Pulse Ox 11/04/23 03:55 36.8 C 65 18 105/69 97 11/03/23 23:10 36.5 C 65 20 122/72 98 11/03/23 22:00 36.7 C 18 11/03/23 21:56 75 11/03/23 21:56 126/59 L 11/03/23 21:41 75 11/03/23 21:41 119/56 L 11/03/23 21:27 16 11/03/23 21:27 80 11/03/23 21:27 131/67 11/03/23 20:57 16 11/03/23 20:57 83 11/03/23 20:57 132/66 11/03/23 20:42 16 11/03/23 20:42 71 11/03/23 20:42 143/63 H 11/03/23 20:26 18 11/03/23 20:26 78 11/03/23 20:26 132/72 11/03/23 20:11 16 11/03/23 20:11 78 11/03/23 20:11 135/63 11/03/23 19:57 36.8 C 18 11/03/23 19:57 80 11/03/23 19:57 121/50 L 11/03/23 19:56 100 11/03/23 19:56 81 11/03/23 19:51 99 11/03/23 19:51 71 11/03/23 19:48 88 L 11/03/23 19:48 85 11/03/23 19:47 76 11/03/23 19:47 121/73 11/03/23 19:46 100 11/03/23 19:46 75 11/03/23 19:45 107/72 11/03/23 19:43 75 11/03/23 19:43 111/58 L 11/03/23 19:41 100 11/03/23 19:41 76 11/03/23 19:40 89 11/03/23 19:40 114/63 11/03/23 19:38 77 11/03/23 19:38 115/58 L 11/03/23 19:37 79 11/03/23 19:37 112/57 L 11/03/23 19:36 100 11/03/23 19:36 85 11/03/23 19:35 79 11/03/23 19:35 135/58 L 11/03/23 19:33 80 11/03/23 19:33 131/72 11/03/23 19:31 100 11/03/23 19:31 74 01/18/24 19:26 100 11/03/23 19:26 80 O2 Del Method 11/04/23 03:55 Room Air 11/03/23 23:10 Room Air 11/03/23 22:00 11/03/23 21:56 11/03/23 21:56 11/03/23 21:41 11/03/23 21:41 11/03/23 21:27 11/03/23 21:27 11/03/23 21:27 11/03/23 20:57 11/03/23 20:57 11/03/23 20:57 11/03/23 20:42 11/03/23 20:42 11/03/23 20:42 11/03/23 20:26 11/03/23 20:26 11/03/23 20:26 11/03/23 20:11 11/03/23 20:11 11/03/23 20:11 11/03/23 19:57 11/03/23 19:57 11/03/23 19:57 11/03/23 19:56 11/03/23 19:56 11/03/23 19:51 11/03/23 19:51 11/03/23 19:48 11/03/23 19:48 11/03/23 19:47 11/03/23 19:47 11/03/23 19:46 11/03/23 19:46 11/03/23 19:45 11/03/23 19:43 11/03/23 19:43 11/03/23 19:41 11/03/23 19:41 11/03/23 19:40 11/03/23 19:40 11/03/23 19:38 11/03/23 19:38 11/03/23 19:37 11/03/23 19:37 11/03/23 19:36 11/03/23 19:36 11/03/23 19:35 11/03/23 19:35 11/03/23 19:33 11/03/23 19:33 11/03/23 19:31 11/03/23 19:31 11/03/23 19:26 11/03/23 19:26
[2023-11-04] MEDS: PRENATAL VITAMIN 1 TAB PO SCH (08:15)
[2023-11-04] MEDS: DOCUSATE SODIUM 100 MG CAP PO SCH ×2 (08:15→19:47)
--- NOTE | 2023-11-04 10:00 | Anesthesia Procedure Note ---
Date of Service November 04, 2023 Anesthesia Post Epidural Note Vital Signs Vital Signs: Temp Pulse Resp BP Pulse Ox O2 Del Method 36.4 C L 60 18 120/77 97 Room Air 11/04/23 08:15 11/04/23 08:15 11/04/23 08:15 11/04/23 08:15 11/04/23 03:55 11/04/23 08:15 Pain Intensity Episiotomy/Laceration: Pain Intensity: 2 Lower Abdomen: Pain Intensity: 4 Notes Mental Status: alert / awake / arousable Nausea / Vomiting: adequately controlled Pain: adequately controlled Airway Patency, RR, SpO2: stable & adequate BP & HR: stable & adequate Hydration State: stable & adequate Neuraxial Anesthesia: was administered and sensory block is resolving Anesthetic Complications: no major complications apparent and Pt Satisfied with anesthetic care Epidural: Removed without complications and With tip intact
[2023-11-04] MEDS ORDERED: bisacodyL 5 MG TABEC PO SCH (20:00)
--- NOTE | 2023-11-05 07:04 | Obstetrical Progress Note ---
Date of Service <Shirley Murray MD - Last Filed: 11/05/23 08:12> November 05, 2023 Assessment & Plan <Shirley Murray MD - Last Filed: 11/05/23 08:12> (1) Encounter for care after hospital delivery: Patient with the above mentioned history and findings was evaluated at bedside and found awake, alert, oriented in all spheres, afebrile, and in no acute distress. Vital signs showed no fever and blood pressures remained stable. Her blood type is O positive and most recent hemoglobin is adequate at 10.4 g/dL. She is GBS negative and rubella immune. She was advised that she should not take any laxatives or stool softeners while she is having diarrhea. She was also encouraged to continue hydration and to use medications such as Loperamide or Pepto Bismol for symptom control if they were to get severe/bothersome. She was advised that, should she develop worsening or persistent diarrhea, bloody diarrhea, associated fevers, or any other additional symptoms, she should call the office or her PCP for further evaluation. Overall, patient is doing well clinically and meeting the desired milestones. Will discharge today. She is to call to make an appointment with her OB in 6 weeks for routine pp evaluation. Other discharge instructions also discussed. All questions answered. <Esperanza Chamorro DO - Last Filed: 11/05/23 08:19> (1) Encounter for care after hospital delivery: Subjective <Shirley Murray MD - Last Filed: 11/05/23 08:12> Jigna is a 28 y/o female who is now PPD # 2 following at 39 5/7 weeks. Reports feeling well overall this morning. Refers mild abdominal cramping & 2/10 pain well managed on analgesics. Voiding spontaneously. Has passed flatus and has had bowel movements (diarrhea). She is still getting laxatives even after her softer bowel movements began. Tolerating meals overnight and able to ambulate some. Some persistent lochia with some improvement this morning. . Constitutional: no fever, no chills or no sweats Denies shortness of breath or difficulty breathing Cardiovascular: no chest pain or no palpitations Breast: no breast pain Genitourinary (female): no dysuria Neurologic: no headache(s) Denies changes in vision Physical Exam <Shirley Murray MD - Last Filed: 11/05/23 08:12> General: Alert. Oriented to person, time, and place. Afebrile. No acute distress. Eyes: pupils equal and reactive to light bilaterally, extraocular movements intact. Cardiac: Regular rate and rhythm, no murmurs/rubs/gallops. Respiratory: Clear to auscultation bilaterally a/p, no wheezes/rales/rhonchi. No increased work of breathing. Symmetrical chest rise. No respiratory distress. Abdomen: Soft, nontender, nondistended. Bowel sounds present. Uterus: Uterine fundus firm, nontender, palpable below umbilicus. Lower Extremities: No lower extremity edema or swelling. No deep calf pain. Lana's negative bilaterally. Psych: Euthymic affect. Mood and affect congruence. Regular speech rate and content. Results & Data <Shirley Murray MD - Last Filed: 11/05/23 08:12> Vital Signs (Past 12 Hours) Vital Signs Temp Pulse Resp BP O2 Del Method 11/04/23 23:15 36.5 C 60 16 115/77 Room Air 11/04/23 19:45 36.6 C 78 14 113/71 Room Air Supervising Physician <Esperanza Chamorro DO - Last Filed: 11/05/23 08:19> Co-Signing Physician Notes Resident Physician Supervision Note: I was present with Dr. Murray during the history and exam. I discussed the case with the resident and agree with the findings and plan as documented in the note. Any exceptions or clarifications are listed here: PPD#2 doing well. Reviewed DC planning, will followup 6w in office. Documented By: Esperanza Chamorro DO
[2023-11-05] MEDS: PRENATAL VITAMIN 1 TAB PO SCH (09:07)
[2023-11-05] MEDS: IBUPROFEN 600 MG TAB PO PRN (09:07)
[2023-11-05] MEDS: DOCUSATE SODIUM 100 MG CAP PO SCH (09:07)
== END 2023-11-05 11:00 | disposition home or self-care (01) | DRG 807 ==
LOC: OPB 16:00 → 4S1 16:01 → 4E2 22:46